=== PATIENT | female | born 1990 | race Caucasian/White ===

== ENCOUNTER 2020-09-28 17:55 | Emergency (ER) | payer BC, SELFPAY ==
[2020-09-28 18:26] VITALS: BP 102/80; PULSE 113; RESP 14; TEMP 36.3; O2SAT 98; BMI 32.5
--- NOTE | 2020-09-28 18:27 | HMH.EDUTC ---
[facility] Disposition Clinical Impression: Viral syndrome, Exposure to COVID-19 virus Disposition: Home, Self-Care Condition on Discharge: Good Instructions: Preventing the Spread of Coronavirus Discharge Instructions Additional Instructions: Drink plenty of fluids. Take tylenol for pain or fever. Return if you begin to have difficulty breathing. Follow up with your regular doctor. GO TO THE ER FOR ANY WORSENING SYMPTOMS Referrals: Simba Begum [Primary Care Provider] - Time of Disposition: 18:29 Medical Decision Making - Medical Records Medical records reviewed: No: I reviewed the patient's medical records. - Claudy Inquiry Pt receiving controlled substance: No Vital Signs: 09/28/20 18:26 09/28/20 18:29 Temperature 97.4 F L 97.4 F L Temperature Source Oral Pulse Rate 113 H Pulse Rate [Left Brachial] 113 H Respiratory Rate 14 14 Blood Pressure 102/80 L Blood Pressure [Left Arm] 102/80 L Blood Pressure Mean [Left Arm] 87 Blood Pressure Source [Left Arm] Automatic Cuff Blood Pressure Position [Left Arm] Sitting 02 Sat by Pulse Oximetry 98 Oxygen Delivery Method Room Air Orders (Tests/Meds): ORDERS Category Date Time Status Covid-19 Nasal PCR ([facility]) Routine Lab 09/28/20 18:05 Received [facility] HPI - General Stated complaint: Achy;Congested;Runny nose Time Seen by Provider: 09/28/20 18:27 - History of Present Illness Provider Complaint: She states that for the past 2 days she has had a sore throat and cough. She has been having chest congestion also. She denies any known exposure to covid. - Related Data Home Medications Medication Instructions Recorded Confirmed levonorgestrel 20 mcg/24 hours (6 INTRAUTERI each 01/11/19 01/11/19 yrs) 52 mg intrauterine device Allergies Allergy/AdvReac Type Severity Reaction Status Date / Time amoxicillin [From Augmentin] Allergy Verified 09/28/20 18:29 clavulanic acid Allergy Verified 09/28/20 18:29 [From Augmentin] erythromycin base Allergy Verified 09/28/20 18:29 Penicillins Allergy Verified 09/28/20 18:29 [facility] History - Hepatitis A Screen Attestation statement:: This patient has been screened for Hepatitis A risk factors. I have reviewed the patient's past medical history: Yes Other Surgeries: Yes: No Previous Surgery Amputation: No Fractures: No - Social History Smoking Status: Never smoker Alcohol Intake: never Substance Use Type: denies use Occupational Status: employed Family Hx:: No significant family history ROS Obtained: Yes All systems reviewed & no additional complaints - Constitutional Constitutional: Reports system reviewed and no additional complaints, except as docu - Eyes Eyes: Reports system reviewed and no additional complaints, except as docu - ENT Ears, Nose, Mouth, and Throat: Reports system reviewed and no additional complaints, except as docu - Cardiovascular Cardiovascular: Reports system reviewed and no additional complaints, except as docu - Respiratory Respiratory: Yes system reviewed and no additional complaints, except as docu - Gastrointestinal Gastrointestingal: Reports: system reviewed and no additional complaints, except as docu Physical Exam - General General appearance: alert, in no apparent distress - Head Head exam: atraumatic, normocephalic, normal inspection - Eye Eye exam: Present: normal appearance, PERRL, EOMI - ENT ENT exam: Present: normal exam, normal oropharynx, mucous membranes moist, TM's normal bilaterally, normal external ear exam - Neck Neck exam: Present: normal inspection, full ROM, trachea midline. Absent: meningismus, lymphadenopathy - Chest Chest inspection: Present: normal inspection, symmetric chest wall rise. Absent: tenderness - Respiratory Respiratory exam: Present: normal lung sounds bilaterally. Absent: respiratory distress - Cardiovascular Cardiovascular exam: Present: regular rate, normal r
[2020-09-28 18:29] VITALS: BP 102/80; PULSE 113; RESP 14; TEMP 36.3; O2SAT 98
== END 2020-09-28 18:35 | disposition home or self-care (01) ==
PROVIDERS: Emergency Provider Nurse Practitioner Family; PCP Internal Medicine
DX: Z20.822 Contact with and (suspected) exposure to COVID-19 (principal); B34.9 Viral infection, unspecified
CPT/HCPCS: 99202; G0463; U0003

== ENCOUNTER → 2021-07-31 12:02 | Outpatient (CLI) | payer BC, SELFPAY ==
--- NOTE | 2021-07-31 12:09 | XR_ITS ---
PROCEDURE: XR SHOULDER LT MIN 2V CLINICAL INDICATION: DECREASED ROM,SHOULDER PAIN COMPARISON: No exams were available for comparison FINDINGS: No fracture or dislocation. No lytic or blastic change. There is normal mineralization. The joint spaces are well-preserved. No significant degenerative/arthritic changes. No erosive changes evident. Other findings:None. IMPRESSION: No acute findings. Dictated by: Dereje Faulkner MD 07/31/2021 16:14 Dereje Faulkner MD in [place] 07/31/2021 16:14
== END ==
PROVIDERS: PCP Nurse Practitioner Family; Visit Provider Nurse Practitioner Family
DX: M25.512 Pain in left shoulder (principal); M25.612 Stiffness of left shoulder, not elsewhere classified
CPT/HCPCS: 73030

== ENCOUNTER 2021-08-26 09:26 | Emergency (ER) | payer BC, SELFPAY ==
[2021-08-26 10:08] VITALS: BP 134/63; PULSE 87; RESP 14; TEMP 36.8; O2SAT 99; BMI 34.7
--- NOTE | 2021-08-26 10:27 | HMH.EDUTC ---
[facility] Disposition Clinical Impression: Vertigo Serous otitis media Qualifiers: Chronicity: acute Laterality: right Recurrence: non-recurrent Qualified Code(s): H65.01 - Acute serous otitis media, right ear Disposition: Home, Self-Care Condition on Discharge: Good Instructions: Vertigo Additional Instructions: Drink plenty of fluids. Take tylenol or ibuprofen for pain or fever. Take the medications as directed. The meclizine (antivert) will make you drowsy, so don't drive or operate machinery after taking it. Follow up with your regular doctor. GO TO THE ER FOR ANY WORSENING SYMPTOMS Prescriptions: Meclizine HCl [Antivert 25mg tablet] 25 mg PO Q6HP PRN #30 tab PRN Reason: Dizziness [id number] methylPREDNISolone [Medrol] 4 mg PO DIRECTED 6 Days #21 packet Transmission Status: [id number] Referrals: Jessie Fajardo APRN [Primary Care Provider] - Forms: Work/School Release Time of Disposition: 10:51 Medical Decision Making - Medical Records Medical records reviewed: No: I reviewed the patient's medical records. - Claudy Inquiry Pt receiving controlled substance: No Vital Signs: 08/26/21 10:08 Temperature 98.3 F Temperature Source Oral Pulse Rate [Left] 87 Respiratory Rate 14 Blood Pressure [Right Arm] 134/63 Blood Pressure Mean [Right Arm] 86 02 Sat by Pulse Oximetry 99 [facility] HPI - General Stated complaint: dizzy Time Seen by Provider: 08/26/21 10:27 Mode of Arrival: Ambulatory Source of Information: Patient Limitations: No Limitations Description of Symptoms (Recalled from Triage Doc. by RN): pt c/o of dizziness. pt states the nurse at work says she has fluid in her R ear. HEENT Symptoms (Recalled from RN notes): Yes (dizziness) Resp Symptoms (Recalled from RN notes): No Skin Symptoms (Recalled from RN notes): No MS Symptoms (Recalled from RN notes): No Functional Status (Recalled from RN notes): wnl - History of Present Illness Provider Complaint: She states that she has had dizziness on and off since she woke up this morning. She denies any other symptoms. She went on to work at . While there she saw the nurse and was told it looks like she has fluid behind her ear drums. She denies any congestion. She denies any fever or chills. - Related Data Home Medications Medication Instructions Recorded Confirmed levonorgestrel 20 mcg/24 hours (7 INTRAUTERI each 01/11/19 01/11/19 yrs) 52 mg intrauterine device Previous Rx's Medication Instructions Recorded Meclizine HCl [Antivert 25mg 25 mg PO Q6HP PRN #30 tab 08/26/21 tablet] methylPREDNISolone [Medrol] 4 mg PO DIRECTED 6 Days #21 08/26/21 packet Allergies Allergy/AdvReac Type Severity Reaction Status Date / Time amoxicillin [From Augmentin] Allergy Verified 09/28/20 18:29 clavulanic acid Allergy Verified 09/28/20 18:29 [From Augmentin] erythromycin base Allergy Verified 09/28/20 18:29 Penicillins Allergy Verified 09/28/20 18:29 - Worker's Comp Is this a Worker's Comp case?: No [facility] History - Hepatitis A Screen Drug use history?: No High risk sexual behaviors?: No History of sexually transmitted infection?: No Currently employed?: No Childcare worker?: No Do you have indoor plumbing?: Yes Do you have electricity?: Yes Attestation statement:: This patient has been screened for Hepatitis A risk factors. I have reviewed the patient's past medical history: Yes Other Surgeries: Yes: No Previous Surgery Amputation: No Fractures: No - Social History Smoking Status: Never smoker Alcohol Intake: never Substance Use Type: denies use Occupational Status: other Family Hx:: No significant family history ROS Obtained: Yes All systems reviewed & no additional complaints - Constitutional Constitutional: Denies chills, Denies fever(s), Denies poor appetite, Denies malaise - Eyes Eyes: Denies blind spots,
[2021-08-26 11:05] VITALS: BP 134/63; PULSE 87; RESP 14; TEMP 36.8
== END 2021-08-26 11:06 | disposition home or self-care (01) ==
PROVIDERS: Emergency Provider Nurse Practitioner Family; PCP Nurse Practitioner Family
DX: H65.01 Acute serous otitis media, right ear (principal)
CPT/HCPCS: 99202; G0463

== ENCOUNTER → 2021-09-02 07:34 | Outpatient (CLI) | payer BC, SELFPAY ==
--- NOTE | 2021-09-02 07:40 | MR_ITS ---
PROCEDURE: MR SHOULDER LT WO CON CLINICAL INDICATION: ANTERIOR SHOULDER PAIN COMPARISON: CR XR SHOULDER LT MIN 2V from 07/31/2021 TECHNIQUE: Routine multiplanar multi echo sequences are performed without gadolinium enhancement. FINDINGS: The subacromial space is narrowed at 4 mm. There is slight increase in PD signal the infraspinatus and supraspinatus tendons which may indicate mild tendinopathy/tendinosis. No definite tear. The subscapularis and teres minor tendons have an unremarkable appearance. The bicipital tendon is in place. No obvious labral tear. No significant joint effusion. Small amount of subcoracoid fluid is noted. Humeral head is slightly high-riding. No fracture or bone bruise. IMPRESSION: 1. No evidence of rotator cuff tear. 2. Mild tendinopathy/tendinosis of the supraspinatus and infraspinatus tendons 3. High-riding humeral head with subacromial stenosis which may lead to impingement symptoms. 4. Small amount of subcoracoid fluid suggesting mild bursitis. Dictated by: Dereje Faulkner MD 09/03/2021 08:23 Dereje Faulkner MD in [place] 09/03/2021 08:23
== END ==
PROVIDERS: PCP Nurse Practitioner Family; Visit Provider Nurse Practitioner Family
DX: M25.512 Pain in left shoulder (principal); M25.612 Stiffness of left shoulder, not elsewhere classified
CPT/HCPCS: 73221

== ENCOUNTER 2021-09-16 10:00 | Outpatient (RCR) | payer BC, SELFPAY ==
--- NOTE | 2021-09-16 10:54 | HMH.OTOPEV ---
OT Inpatient Evaluation Rehab OT Outpatient Eval Start: 09/16/21 10:38 Freq: Status: Active Protocol: [facility]16/21 10:39 [facility] (Rec: 09/16/21 10:53 [id number] Electronically Signed By Priti Cowan OT 09/16/21 10:39 Outpatient Therapy Subjective History Subjective History Pt is a 31 year old female who reports to therapy for initial evaluation to left shoulder. Pt reports she has been having pain on and off at the left shoulder for over a year. She does not recall a specific injusry causing the pain to begin. However, within the last 2 months her pain has increased significantly. Pt does demonstrate with decreased AROM and strength at left shoulder. Pt works fulltime at [employer], which requires repetitive use of bilateral UE . Pt did have an MRI completed and the following information was copied and pasted from the report: Impression 1. No evidence of rotator cuff tear. 2. Mild tendinopathy/ tendinosis of the supraspinatus and infraspinatus tendons 3. High-riding humeral head with subacromial stenosis which may lead to impingement symptoms. 4. Small amount of subcoracoid fluid suggesting mild bursitis. Pt does go to see an ortho on September 30, 2021. Pt does have a significant difference in sternoclavicular joints therapist observed during palpation. Pt's left SC joint is significantly larger than the right. Overall, pt will continue to be seen twice a week to address all deficits. Chief Complaint Pain,Stiff,Weakness Symptom Type Ache,Thro
== END 2021-09-16 10:05 | disposition home or self-care (01) ==
LOC: OT 10:00
PROVIDERS: PCP Nurse Practitioner Family; Visit Provider Nurse Practitioner Family
DX: M75.52 Bursitis of left shoulder (principal); M75.42 Impingement syndrome of left shoulder
CPT/HCPCS: 97014; 97110; 97166; G0283

== ENCOUNTER → 2021-11-20 10:52 | Outpatient (CLI) | payer BC, SELFPAY | PROVIDERS: PCP Nurse Practitioner Family; Visit Provider Nurse Practitioner | DX: Z20.822 Contact with and (suspected) exposure to COVID-19 (principal) | CPT/HCPCS: C9803; U0003; U0005 ==

== ENCOUNTER 2023-09-21 16:02 | Emergency (ER) | payer BC, SELFPAY ==
--- NOTE | 2023-09-21 16:08 | PC.NURSE ---
staff attempted to do glucose and EKG on patient at this time due to her syncopal episode. pt refused. pt stated : im just sick its not my heart i dont want that. this nurse tried to explain the importance of getting an EKG with syncopal episodes the pt stated it was just her nerves and she didnt want it
[2023-09-21 16:15] VITALS: BP 102/68; PULSE 111; RESP 16; TEMP 37.1; O2SAT 96; BMI 30.2
[2023-09-21 16:30] VITALS: BP 105/64; PULSE 106; RESP 22; O2SAT 98
[2023-09-21 16:41] LABS: Coronavirus 19, PCR Not Detected (NotDetected); Influenza A, PCR Not Detected (NotDetected); Influenza B, PCR Not Detected (NotDetected)
[2023-09-21 17:00] VITALS: BP 78/51; PULSE 104; RESP 22; O2SAT 98
[2023-09-21 17:01] LABS: Basophils % 0.2 % (0.1-2.0); Chloride 101 mmol/L (98-107); Eosinophils % 0.1 % (0.1-12.0); Hematocrit 44.9 % (37.0-47.0); Hemoglobin 15.6 g/dL (12.2-16.2); Lymphocytes # 1.1 K/mm3 (0.7-4.5); Mean Corpuscular HGB Conc 34.7 g/dL (31.8-35.4); Mean Corpuscular Hemoglobin 31.6 pg (27.0-31.2); Mean Corpuscular Volume 90.9 fl (81-99); Mean Platelet Volume 8.1 fl (7.4-10.4); Monocytes # 0.5 K/mm3 (0.1-1.0); Monocytes % 3.1 % (1.7-9.3); Neutrophils # 13.5 K/mm3 (1.8-7.8); Neutrophils % 89.5 % (37.0-80.0); Platelet Count 265 K/mm3 (142-424); Potassium 3.7 mmoL/L (3.5-5.1); Red Blood Count 4.94 M/mm3 (4.20-5.40); Red Cell Distribution Width 12.2 % (11.5-17.5); Sodium 136 mmol/L (136-145); White Blood Count 15.1 K/mm3 (4.8-10.8)
--- NOTE | 2023-09-21 17:02 | HMH.EDGENADL ---
Discharge Plan Disposition Patient Disposition: Home, Self-Care Condition: Good Prescriptions Prescriptions: No Action Mirena 20 mcg/24 hours (5 yrs) 52 mg intrauterine device INTRAUTERI ergocalciferol (vitamin D2) 1,250 mcg (50,000 unit) capsule 1,250 mcg PO WEEKLY cefdinir 300 mg capsule 300 mg PO BID 7 Days Qty: 14 0RF codeine-guaifenesin 10-200 mg/5 mL liquid 10 ml PO Q4-6H PRN (Reason: cough) Qty: 120 0RF Referrals Follow up/Referrals: Jessie Fajardo APRN [Primary Care Provider] - See instructions Activity Restrictions/Add. Instructions Additional Instructions/Restrictions: You were evaluated in the emergency department today. Your viral swab is pending at this time. Take Tylenol and ibuprofen every 4-6 hours at home as needed for pain and fever. Hydrate is much as possible. Return to the emergency department for new or worsening symptoms. Follow-up with your primary care provider over the next 3 days for reassessment. Clinical Impressions Clinical Impression: Acute viral syndrome, Pre-syncope, Acute dehydration Stand Alone Forms Stand Alone Forms: Work/School Release Instructions Patient Instructions: DI for Dehydration -- Adult, DI for Viral Syndrome Discharge ED Provider: Monika Paul General Adult HPI General Chief complaint: Upper Respiratory Infection Stated complaint: body aches Time Seen by Provider: 09/21/23 16:10 Mode of Arrival: Ambulatory Limitations: No Limitations Description of Symptoms (Recalled from ER Triage Doc. by RN): pt was presenting to check in to the [facility] when she told registration i need to sit down and proceeded to have a near syncopal episode. on assessment pt was alert and oriented and was assisted to the floor by registration staff. pt reports she has had a sore throat, body aches and chills since yesterday. History of Present Illness HPI narrative: This patient is a 33-year-old female presenting to the emergency department for evaluation with concern for body aches, sore throat, cough, congestion that started yesterday. She states that she is sick and wanted to go to [facility] when she told registration that she needed to sit down because she felt lightheaded. She had a near syncopal episode out of the lobby, so we were called out for assistance. Patient never truly lost consciousness. Patient initially refused ED assessment and wanted to go to the urgent treatment center, however we urged her to come here for evaluation given her near syncopal episode. Patient states that she is feeling fine aside from having the sore throat, cough, congestion, body aches, and lightheadedness. She took some Tylenol at home without good improvement. No other concerns noted, such as chest pain, shortness of breath, abdominal pain, nausea, vomiting, change in bowel movements, rashes, or swelling. Related Data Home Medications Medication Instructions Recorded Confirmed levonorgestrel 21 mcg/24 hours (8 intrauterine 01/11/19 06/16/23 yrs) 52 mg intrauterine device (Mirena) ergocalciferol (vitamin D2) 1,250 1,250 mcg PO WEEKLY 06/16/23 06/16/23 mcg (50,000 unit) capsule Previous Rx's Medication Instructions Recorded cefdinir 300 mg capsule 300 mg PO BID 7 days #14 caps 06/16/23 codeine 10 mg-guaifenesin 200 mg/5 10 ml PO Q4-6H PRN cough #120 mL 06/16/23 mL oral liquid Allergies Allergy/AdvReac Type Severity Reaction Status Date / Time amoxicillin [From Augmentin] Allergy Verified 06/16/23 14:44 clavulanic acid Allergy Verified 06/16/23 14:44 [From Augmentin] erythromycin base Allergy Verified 06/16/23 14:44 Penicillins Allergy Verified 06/16/23 14:44 [facility] Disclaimer: The information contained in this section may have been updated after the patient was seen, as this information can be updated by other users. Surgical History Hx of bilateral breast reduction surgery
[2023-09-21 17:03] LABS: MANUAL DIFFERENTIAL MANUAL DIFFERENTIAL (MANUAL DIFF)
[2023-09-21 17:04] LABS: Anion Gap 15.7 mEq/L (5-15); Blood Urea Nitrogen 19 mg/dl (7-17); Calcium 8.6 mg/dl (8.4-10.2); Carbon Dioxide 23 mmol/L (22.0-30.0); Creatinine Clearance Estimated 108 mL/min (50-200); Estimated Glomerular Filt Rate 58 ml/min (>60); GFR (African American) 70 ML/MIN (>60); Glucose 123 mg/dl (74-100)
--- NOTE | 2023-09-21 17:07 | PC.NURSE ---
TOLERATING PO SPRITE AT THIS TIME
[2023-09-21 17:10] LABS: Strep Scrn Group A (Rapid) Negative (Negative)
[2023-09-21 17:14] LABS: HCG Qualitative, Serum Negative (Negative)
[2023-09-21 17:30] VITALS: BP 92/49; PULSE 104; RESP 20; O2SAT 98
[2023-09-21 17:30] LABS: Lymphocytes % 8 % (10-50); Monocytes % 1 % (2-9); Neutrophils % 91 % (42-76); Platelet Estimate Normal; RBC Morphology Normal; Total Cells Counted 100
[2023-09-21 18:07] VITALS: BP 106/69; PULSE 100; RESP 20; O2SAT 98
--- NOTE | 2023-09-21 18:10 | PC.NURSE ---
PT AMBULATED WITH STAFF, NO ISSUES
[2023-09-21 18:25] VITALS: BP 106/69; PULSE 97; RESP 18; TEMP 37; O2SAT 98
--- NOTE | 2023-09-30 15:49 | PC.NURSE ---
DR LÓPEZ NOTIFIED OF THROAT SWAB, NO NEW ORDERS. PT RECEIVED APPROPRIATE ABX FROM PCP
== END 2023-09-21 18:31 | disposition home or self-care (01) ==
LOC: UTC 16:05 → ER 16:05
PROVIDERS: Emergency Provider Emergency Medicine; PCP Nurse Practitioner Family
DX: R55 Syncope and collapse (principal); E86.0 Dehydration; R05.9 Cough, unspecified; J20.9 Acute bronchitis, unspecified; B34.9 Viral infection, unspecified
CPT/HCPCS: 80048; 84703; 85007; 85025; 87430; 87636; 96361; 96374; 99285

== ENCOUNTER → 2023-09-23 23:57 | Outpatient (CLI) | payer BC, SELFPAY | LOC: LAB.DROPOF 23:58 | PROVIDERS: PCP Nurse Practitioner Family; Visit Provider Family Medicine | DX: J02.9 Acute pharyngitis, unspecified (principal); B95.0 Streptococcus, group A, as the cause of diseases classified elsewhere | CPT/HCPCS: 87070; 87635 ==

== ENCOUNTER 2023-11-22 14:09 | Outpatient (CLI) | payer BC, SELFPAY ==
[2023-11-22 14:10] LABS: Coronavirus 19, PCR Not Detected (NotDetected); Influenza A, PCR Not Detected (NotDetected); Influenza B, PCR Not Detected (NotDetected)
== END 2023-11-22 23:59 ==
LOC: LAB.DROPOF 14:09
PROVIDERS: PCP Nurse Practitioner Family; Visit Provider Nurse Practitioner Family
DX: Z20.822 Contact with and (suspected) exposure to COVID-19 (principal); R42 Dizziness and giddiness; R19.7 Diarrhea, unspecified; B34.9 Viral infection, unspecified
CPT/HCPCS: 87636

== ENCOUNTER 2024-09-18 10:10 | Outpatient (CLI) | payer BC, SELFPAY ==
--- NOTE | 2024-09-18 10:10 | US_ITS ---
PROCEDURE: US TRANSVAGINAL CLINICAL INDICATION: iud in place, pt. having irreg. periods COMPARISON: No exams were available for comparison FINDINGS: Transvaginal sonographic images of the pelvis were obtained. UTERUS: 7.5 cm x 4.7 cmx 3.7 cm anteverted with a combined endometrial thickness of 2.3mm. There is an IUD within the uterine cavity. It seems to be low-lying. The IUD seems to be malpositioned with the arm located in the anterior myometrium. There is a small amount of fluid within the cervix. LEFT OVARY: 2.4cmx1.5cmx1.6cm with a volume of 3ml. There are several small peripheral follicles. RIGHT OVARY: 2.2cmx 1.7 cmx1.9 cm with a volume of 3.6ml. There are several small peripheral follicles. Both ovaries are seen and appear polycystic. Doppler flow to both ovaries are seen. There is no fluid in the cul-de-sac. IMPRESSION: 1. Anteverted uterus normal in shape and size. The endometrium is thin. 2. There is an IUD within the lower uterine cavity. The IUD appears to be malpositioned with an arm in the anterior myometrium. Suggest removal. 3. Both ovaries are seen and appear polycystic. 4. No fluid in the cul-de-sac. Dictated by: Anirudh Valenzuela MD 09/19/2024 08:05 Anirudh Valenzuela MD in [place] 09/19/2024 08:05
== END 2024-09-18 23:59 | disposition home or self-care (01) ==
LOC: RAD 10:10
PROVIDERS: PCP Nurse Practitioner Family; Visit Provider Nurse Practitioner Obstetrics & Gynecology
DX: N92.6 Irregular menstruation, unspecified (principal); Z97.5 Presence of (intrauterine) contraceptive device
CPT/HCPCS: 76830

== ENCOUNTER 2024-10-11 09:43 | Outpatient (CLI) | payer BC, SELFPAY ==
[2024-10-11 13:17] LABS: Influenza A, PCR Not Detected (NotDetected); Influenza B, PCR Not Detected (NotDetected); Respiratory Syncytial Virus Not Detected (NotDetected)
[2024-10-11 14:58] LABS: Coronavirus 19, PCR Detected (NotDetected); Human Rhinovirus Detected (NotDetected)
== END 2024-10-11 23:59 | disposition home or self-care (01) ==
LOC: LAB.DROPOF 10-12 09:43
PROVIDERS: PCP Nurse Practitioner Family; Visit Provider Nurse Practitioner Family
DX: J02.9 Acute pharyngitis, unspecified (principal); R68.83 Chills (without fever); R53.83 Other fatigue
CPT/HCPCS: 87631

== ENCOUNTER 2025-03-19 15:51 | Outpatient (CLI) | payer BC, SELFPAY ==
[2025-03-19 12:31] LABS: Coronavirus 19, PCR Not Detected (NotDetected); Human Rhinovirus Not Detected (NotDetected); Influenza A, PCR Not Detected (NotDetected); Influenza B, PCR Not Detected (NotDetected); Respiratory Syncytial Virus Not Detected (NotDetected)
== END 2025-03-19 23:59 | disposition home or self-care (01) ==
LOC: LAB.DROPOF 15:51
PROVIDERS: PCP Nurse Practitioner Family; Visit Provider Nurse Practitioner Family
DX: R50.9 Fever, unspecified (principal)
CPT/HCPCS: 87631